=== PATIENT | male | born 1995 | race Caucasian/White ===

== ENCOUNTER 2019-10-14 15:58 | Emergency (ER) | payer OTHER ==
[2019-10-14 16:06] VITALS: BP 146/72
--- NOTE | 2019-10-14 16:14 | ER Document Report ---
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 Reports he had surgery on his left foot 1 year ago. He reports couple days [place] and has been hurting since then. He did go to his [facility] who gave him Motrin. He was instructed to follow-up in the emergency department for continued pain. He denies fever vomiting diarrhea. Associated Symptoms: None Exacerbated by: Walking Relieved by: Denies Similar symptoms previously: Yes Recently seen / treated by doctor: Yes Past Medical History - General Information source: Patient - Social History Smoking Status: Unknown if Ever Smoked Cigarette use (# per day): No Frequency of alcohol use: None Drug Abuse: None Family History: None Patient has suicidal ideation: No Patient has homicidal ideation: No - Medical History Medical History: Negative Past Surgical History: Reports: Hx Orthopedic Surgery, Hx Tonsillectomy Vertical Provider Document - CONSTITUTIONAL Agree With Documented VS: Yes Exam Limitations: No Limitations General Appearance: WD/WN, No Apparent Distress - HEENT HEENT: Atraumatic, Normocephalic - NECK Neck: Supple - RESPIRATORY Respiratory: No Respiratory Distress - CARDIOVASCULAR Cardiovascular: Regular Rate - MUSCULOSKELETAL/EXTREMETIES Musculoskeletal/Extremeties: MAEW, FROM, Tender - left medial proximal/mid foot with ttp, no obvious deformity, no swelling no warmth. 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 10/14/19 16:50 Patient reports he had a fractured foot last year while in the . Reports he had surgery on the foot and they had to go in and do a washout because they still had pieces of bone. He also mentions bone marrow something or another he is not sure. Patient is being medical only discharged from the for this. I consulted Dr. Parham regarding osteonecrosis of the tarsonavicular Ovalle Navarro disease. He advised orthopedic consult. I consulted Dr. Arias. He advised patient can be put in splint and crutches for comfort and needs to follow-up with orthopedics. He reports he is more than happy to care the patient but I will probably refer him out to orthopedic foot ankle surgeon in [place] by the name of Dr. Rae. Patient was instructed on this. He reports he will follow-up with the and be evaluated and referred out by them. He was placed in a posterior ankle with crutches instructed to continue take Motrin for the pain. He verbalized understanding to all instructions. - Vital Signs Vital signs: Temp Pulse Resp BP Pulse Ox 97.7 F 80 16 146/72 H 98 10/14/19 16:04 10/14/19 16:04 10/14/19 16:04 10/14/19 16:04 10/14/19 16:04 - Diagnostic Test Radiology reviewed: Image reviewed, Reports reviewed - Consults dr kaleb arias Time consulted: 17:05 Reason for consultation: 10/14/19 18:07 Osteonecrosis sexton Navarro disease Consulted provider: follow-up in office Procedures - Immobilization Left Foot Pre-Proc Neuro Vasc Exam: Normal Immobilizer type: Posterior ankle Performed by: PCT Post-Proc Neuro Vasc Exam: Unchanged from pre-exam Alignment checked and good: Yes Discharge - Discharge Clinical Impression: Left foot pain, Osteonecrosis navicular ovalle/navarro Condition: Stable Disposition: HOME, SELF-CARE Instructions: Use of Crutches ([facility]), Use of Vycu-Jfu-Lqhwijs Ibuprofen ([facility]), Temporary Splint ([facility]) Additional Instructions: *You have been evaluated for foot pain Your x-ray shows osteonecrosis of the tarsal navicular/Ovalle Navarro diseas *You have been placed in a splint and given crutches. No weightbearing *Take ibuprofen as indicated for pain *Follow up with [facility] Wednesday for referral to orthopedics *Return to ED for worsening condition, changes, needs Forms: Elevated Blood Pressure Referrals: CHALO DE LA ROSA DO [Primary Care Provider] - Follow up as needed CIARA ARIAS JR, DO [ACTIVE PROVISIONAL STAFF] - Follow up as needed
--- NOTE | 2019-10-14 16:37 | RADIOLOGY REPORT (SQ) ---
EXAM DESCRIPTION: FOOT LEFT COMPLETE IMAGES COMPLETED DATE/TIME: 10/14/2019 4:28 pm REASON FOR STUDY: pain, hx surgery COMPARISON: None. NUMBER OF VIEWS: Three views. TECHNIQUE: AP, lateral and oblique without weight bearing radiographic images acquired of the left f oot. LIMITATIONS: None. FINDINGS: MINERALIZATION: Normal. BONES: No acute fracture. Sclerosis and mild fragmentation of the tarsal navicula. Indicative of jeancarlos scular necrosis/sexton-navarro disease. Degenerative osteophyte of the dorsal talus. JOINTS: No erosions. No juan francisco-articular osteopenia. No chondrocalcinosis. SOFT TISSUES: No swelling. No calcifications. OTHER: No other significant finding. 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 TECHNICAL DOCUMENTATION: JOB ID: [id number] [email or web address] All Rights Reserved Reading location - IP/workstation name: [email or web address]
== END 2019-10-14 17:41 | disposition home or self-care (01) ==
LOC: ER 15:58
DX: M87.875 Other osteonecrosis, left foot (principal); Z98.890 Other specified postprocedural states
CPT/HCPCS: 99283